=== PATIENT | female | born 2000 | race African-American/Black ===

== ENCOUNTER 2024-08-22 11:56 | Emergency (ER) | payer SELFPAY | END 2024-08-22 14:28 | disposition home or self-care (01) | LOC: CSHERS 11:56 | DX: B34.9 Viral infection, unspecified (principal) | CPT/HCPCS: 87081; 87428; 87430; 99283 ==

== ENCOUNTER 2025-06-11 06:00 | Inpatient (IN) | payer MEDICAID ==
[~2025-06-11 06:00] MED LIST: hydrALAZINE 20 MG/ML VIAL SLOW IVP PRN
[2025-06-12] MEDS ORDERED: Bupivacaine/Epinephrine 0.25% 30 ML VIAL ONE (17:00)
[2025-06-12 22:35] VITALS: BMI 38.3
[2025-06-12 23:09] LABS: Hematocrit 30.0 % (34.9-44.5); Hemoglobin 9.1 g/dL (12.0-15.5); Mean Corpuscular Hemoglobin 20.6 pg (27.0-33.0); Mean Corpuscular Volume 67.9 fL (81.6-98.3); Platelet Count 304 10x3/uL (150-450); Red Blood Cell (RBC) Count 4.42 10x6/uL (3.90-5.03); White Blood Cell (WBC) Count 10.85 10x3/uL (3.5-10.5)
[2025-06-12 23:22] LABS: ALT (SGPT) Less than 7 U/L (Less than 34); AST (SGOT) 11 U/L (11-34); Albumin 2.9 g/dL (3.1-4.5); Alkaline Phosphatase 108 U/L (40-110); Anion Gap 11 mmol/L (10-20); BUN (Urea Nitrogen) 7 mg/dL (7.0-18.7); Bilirubin, Total 0.3 mg/dL (0.3-1.2); Calc. Creatinine Clearance 244 mL/min (70-130); Calcium 8.4 mg/dL (7.8-10.44); Carbon Dioxide 21 mmol/L (22-29); Chloride 107 mmol/L (98-107); Globulin 3.9 g/dL (2.4-3.5); Glucose 121 mg/dL (70-105); Potassium 3.6 mmol/L (3.5-5.1); Sodium 135 mmol/L (136-145)
[2025-06-12] MEDS ORDERED: Ondansetron PF 4 MG/2 ML Vial IVP PRN (23:30)
[2025-06-12] MEDS ORDERED: Oxytocin 30 units/NS 500 ML 500 ML IV SCH ×2 (23:30)
[2025-06-12] MEDS ORDERED: Lidocaine 1% (PF) 30 ML VIAL SC PRN (23:30)
[2025-06-12 23:41] LABS: Syphilis Antibody Index 0.07 S/CO (<1.00 Non-Reactive)
[2025-06-12 23:44] LABS: HIV (1/2) Antibody/Antigen Non-Reactive (NonReactive); HIV 1/2 INDEX 0.14 S/CO (<1.00); Hep B Surf Ag - L&D Non-Reactive S/CO (NonReactive)
[2025-06-13] MEDS: fentaNYL/Ropivacaine Epidural 100 ML ONE (10:17)
[2025-06-13] MEDS ORDERED: Acetaminophen 325 MG TAB PO PRN (11:03)
[2025-06-13] MEDS ORDERED: diphenhydrAMINE 50 MG/ML VIAL IVP PRN (11:03)
[2025-06-13] MEDS ORDERED: Ondansetron PF 4 MG/2 ML Vial IVP PRN ×2 (11:03→11:59)
[2025-06-13] MEDS ORDERED: Communication Order-Pharmacy FS SCH (11:15)
[2025-06-13] MEDS ORDERED: fentaNYL 2 mcg/Ropivacaine 0.2% Epidural 100 ML CADD EPIDURAL SCH (11:15)
[2025-06-13] MEDS ORDERED: Milk Of Magnesia 30 ML UDCUP PO PRN (11:59)
[2025-06-13] MEDS ORDERED: hydrALAZINE 20 MG/ML VIAL SLOW IVP PRN (11:59)
[2025-06-13] MEDS ORDERED: Boostrix 0.5 ML (Tdap) VIAL (>/=7 yrs of age) IM ONE (11:59)
[2025-06-13] MEDS ORDERED: HYDROcodone/Acetaminophen 5/325 mg Tablet PO PRN (11:59)
[2025-06-13] MEDS ORDERED: Bisacodyl 10 MG SUPP PR PRN (11:59)
[2025-06-13] MEDS: Ibuprofen 800 MG TAB PO SCH (16:48)
[2025-06-13] MEDS: Benzocaine-Menthol 82.5 ML CAN TOP PRN (22:02)
[2025-06-13] MEDS: Witch Hazel 100 PAD JAR TOP PRN (22:02)
[2025-06-14] MEDS: Ferrous Sulfate 325 MG TAB PO SCH (07:23)
[2025-06-14 12:39] VITALS: BP 125/73; TEMP 97.5
== END 2025-06-14 15:45 | disposition home or self-care (01) | DRG 807 ==
LOC: CSHLD 06-12 22:16 → CSHPP 06-13 17:07
PROVIDERS: ADMIT Obstetrics & Gynecology; ATTEND Obstetrics & Gynecology
PROC: 10E0XZZ Delivery of Products of Conception, External Approach (ICD-10-PCS; principal; 2025-06-13)
PROC: 0HQ9XZZ Repair Perineum Skin, External Approach (ICD-10-PCS; 2025-06-13)
DX: O13.4 Gestational [pregnancy-induced] hypertension without significant proteinuria, complicating childbirth (principal); Z37.0 Single live birth; O70.0 First degree perineal laceration during delivery; Z88.0 Allergy status to penicillin; Z88.1 Allergy status to other antibiotic agents; O99.214 Obesity complicating childbirth; Z3A.38 38 weeks gestation of pregnancy
CPT/HCPCS: 36415; 51702; 80053; 85027; 86780; 86850; 86900; 86901; 87340; 87389; J3010